=== PATIENT | male | born 1950 | race Caucasian/White ===

== ENCOUNTER 2016-11-02 01:05 | Emergency (ER) | payer MEDICAID, OTHER, SELFPAY ==
[~2016-11-02] VITALS: Ht 182.9 cm; Wt 68.0 kg
[2016-11-02 02:29] LABS: DAU SCREEN DISCLAIMER
[2016-11-02] MEDS ORDERED: SODIUM CHLORIDE 0.9% 1,000ML IVBOLUS ONE (02:30)
[2016-11-02 02:37] LABS: ASPARTATE AMINO TRANSFERASE 232 U/L (15-37); BLOOD UREA NITROGEN 6 mg/dL (7-18)
[2016-11-02] MEDS ORDERED: PHENYTOIN SODIUM 1,000 MG in SODIUM CHLORIDE 0.9% 80 ML IV ONE (03:00)
[2016-11-02] MEDS ORDERED: FILTER 0.22 MICRON IV ONE (03:00)
[2016-11-02] MEDS ORDERED: ONDANSETRON 2MG/ML, 2ML ONE (04:11)
[2016-11-02] MEDS ORDERED: PHEN100C PO (04:17)
[2016-11-02] MEDS ORDERED: ONDANSETRON 2MG/ML, 2ML IVPush ONE (04:30)
[2016-11-02 05:06] VITALS: BP 107/73
== END 2016-11-02 05:08 | disposition home or self-care (01) ==
LOC: ED 03:26
DX: R56.9 Unspecified convulsions (principal); R55 Syncope and collapse; F10.20 Alcohol dependence, uncomplicated; Z72.89 Other problems related to lifestyle
CPT/HCPCS: 36415; 70450; 80053; 80185; 80307; 85025; 93005; 96365; 96375; 99285; J1165; J2405; J7030

== ENCOUNTER 2016-11-11 12:20 | Emergency (ER) | payer SELFPAY ==
[~2016-11-11] VITALS: Ht 172.7 cm; Wt 80.0 kg
[~2016-11-11 12:20] MED LIST: PHEN100C PO
[2016-11-11] MEDS ORDERED: SODIUM CHLORIDE 0.9% 1,000ML IVBOLUS ONE (13:00)
[2016-11-11 13:40] LABS: ASPARTATE AMINO TRANSFERASE 183 U/L (15-37); BLOOD UREA NITROGEN 8 mg/dL (7-18)
[2016-11-11 13:45] LABS: ACETAMINOPHEN < 2 mcg/mL (10-30)
[2016-11-11] MEDS ORDERED: THIAMINE 100 MG/ML, 2ML IM ONE (15:00)
[2016-11-11] MEDS ORDERED: SODIUM CHLORIDE 0.9% IV ONE (15:00)
[2016-11-11] MEDS ORDERED: MAGNESIUM SULFATE IV ONE (15:00)
[2016-11-11] MEDS ORDERED: THIAMINE IV ONE (15:00)
[2016-11-11] MEDS ORDERED: FOLIC ACID 5 MG/ML IM ONE (15:00)
[2016-11-11] MEDS ORDERED: MAGNESIUM SULFATE 1 GM/2 ML IVPush ONE (15:00)
[2016-11-11] MEDS ORDERED: FOLIC ACID IV ONE (15:00)
[2016-11-11 15:27] VITALS: BP 112/84
[2016-11-11] MEDS ORDERED: IBUPROFEN 200 MG TABLET ONE (17:05)
[2016-11-11] MEDS ORDERED: IBUPROFEN 200 MG TABLET PO ONE (17:30)
== END 2016-11-11 18:17 | disposition left against medical advice (07) ==
LOC: ED 18:11
DX: G31.2 Degeneration of nervous system due to alcohol (principal); E86.1 Hypovolemia; F10.220 Alcohol dependence with intoxication, uncomplicated
CPT/HCPCS: 36415; 80053; 80307; 80329; 85025; 96365; 99284; J3411; J3475; J7030; G0480

== ENCOUNTER 2016-12-08 10:47 | Emergency (ER) | payer MEDICARE, OTHER ==
[~2016-12-08] VITALS: Ht 182.9 cm; Wt 69.0 kg
[2016-12-08] MEDS ORDERED: OXYcodone/APAP 10/325MG TABLET ONE (11:57)
[2016-12-08] MEDS ORDERED: OXYcodone/APAP 10/325MG TABLET PO ONE (12:00)
[2016-12-08] MEDS ORDERED: CLINDAMYCIN 150 MG CAPSULE PO ONE (14:00)
[2016-12-08 14:23] VITALS: BP 119/70
== END 2016-12-08 14:25 | disposition home or self-care (01) ==
LOC: ED 12:37
DX: B37.42 Candidal balanitis (principal)
CPT/HCPCS: 81003; 82962; 99283

== ENCOUNTER 2016-12-21 00:54 | Emergency (ER) | payer OTHER ==
[~2016-12-21] VITALS: Ht 182.9 cm; Wt 70.0 kg
[2016-12-21 00:55] VITALS: BP 107/73
[2016-12-21 01:53] LABS: HEMATOCRIT 39.9 % (39.2-51.8); WHITE BLOOD COUNT 5.8 x10^3/uL (3.4-10)
[2016-12-21 02:05] LABS: BLOOD UREA NITROGEN 13 mg/dL (7-18)
[2016-12-21] MEDS ORDERED: OXYcodone/APAP 5/325MG TABLET ONE (02:10)
[2016-12-21] MEDS ORDERED: OXYcodone/APAP 5/325MG TABLET PO ONE (02:30)
== END 2016-12-21 02:29 | disposition home or self-care (01) ==
LOC: ED 01:26
DX: L03.116 Cellulitis of left lower limb (principal)
CPT/HCPCS: 36415; 80048; 82040; 85025; 99285

== ENCOUNTER 2018-05-01 12:44 | Emergency (ER) | payer MEDICARE, MEDICAID ==
[~2018-05-01] VITALS: Ht 172.7 cm; Wt 70.0 kg
--- NOTE | 2018-05-01 13:14 | NUR ---
pt bib remsa. found sleeping on the stairs of an apartment. pt was easily aroused but would not stay awake. when asked if he drank any alcohol pt stated, "way more than i should"
--- NOTE | 2018-05-01 13:35 | NUR ---
TASK RN: PT SLEEPING ON VISHAL. NADN. CARDENAS.
[2018-05-01 17:29] VITALS: BP 97/67
--- NOTE | 2018-05-01 18:57 | NUR ---
PT ID FOUND IN ROOM. PLACED IN BAG AND GIVEN TO SECURITY.
== END 2018-05-01 18:48 | disposition home or self-care (01) ==
LOC: ED 17:48
DX: G31.2 Degeneration of nervous system due to alcohol (principal)
CPT/HCPCS: 99283

== ENCOUNTER 2020-04-01 22:37 | Emergency (ER) | payer MEDICARE ==
[~2020-04-01] VITALS: Ht 172.7 cm; Wt 71.0 kg
--- NOTE | 2020-04-02 00:54 | NUR ---
PT CONT TO REFUSE TO SPEAK TO RN. SLEEPING ON HIS SIDE. NO ACUTE DISTRESS NOTED.
--- NOTE | 2020-04-02 02:15 | NUR ---
PT SLEEPING ON GURNEY, NO ACUTE DISTRESS NOTED. WILL CONT TO MONITOR.
--- NOTE | 2020-04-02 04:37 | NUR ---
RN AND ROLL FORM OPERATOR ATTEMPED TO AMBULATE PT, PT NOT STEADY ON HIS FEET. VSS.
--- NOTE | 2020-04-02 04:44 | NUR ---
REPORT FROM VALERIA FLORENTINO. PT SLEEPING. EVEN RISE AND FALL OF CHEST OBSERVED. CALL LIGHT IN REACH
--- NOTE | 2020-04-02 05:55 | NUR ---
ATTEMPTED TO AMBULATE PT. PT UNABLE TO STAND WITHOUT ASSISTANCE. PT ASSITED BACK TO BED. WILL REASSESS WHEN PT MORE SOBER.
[2020-04-02 06:20] VITALS: BP 114/72
--- NOTE | 2020-04-02 06:59 | NUR ---
REPORT TO ALYSSIA FLORENTINO
--- NOTE | 2020-04-02 07:39 | NUR ---
LATE ENTRY 0700, SBAR RPT REC'D AND ASSUMED PT CARE. PT ARROUSES EASILY TO VERBAL STIM. BEDOLLA, DENIES PAIN. MEAL TRAY ORDERED. CALL LIGHT W/I REACH, NAD NOTED.
--- NOTE | 2020-04-02 08:43 | NUR ---
BREAKFAST TRAY PROVIDED AND PT CONSUMED 75%. PT OOB AMBULATORY WITH STEADY GAIT. Patient/Caregiver given discharge instructions and they have confirmed that they understand the instructions. Patient ambulatory with steady gait.
== END 2020-04-02 08:43 | disposition home or self-care (01) ==
LOC: ED 04-02 00:05
DX: F10.129 Alcohol abuse with intoxication, unspecified (principal); R41.82 Altered mental status, unspecified; Z72.9 Problem related to lifestyle, unspecified; I25.10 Atherosclerotic heart disease of native coronary artery without angina pectoris; I25.2 Old myocardial infarction; Y90.0 Blood alcohol level of less than 20 mg/100 ml
CPT/HCPCS: 70450; 99284

== ENCOUNTER 2020-04-12 05:28 | Emergency (ER) | payer MEDICARE ==
[~2020-04-12] VITALS: Ht 182.9 cm; Wt 74.0 kg
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
[2020-04-12] MEDS ORDERED: SODIUM CHLORIDE 0.9% 1,000ML IVBOLUS ONE (06:00)
[2020-04-12 06:02] LABS: BASOPHILS % (AUTO) 1 % (0-1); EOSINOPHILS % (AUTO) 3 % (1-7); LYMPHOCYTES % (AUTO) 33 % (22-44); MEAN CORPUSCULAR HEMOGLOBIN 33.8 pg (27.5-34.5); MEAN CORPUSCULAR HGB CONC 33.9 g/dL (33.2-36.2); MEAN PLATELET VOLUME 7.7 fL (7.4-10.4); MONOCYTES % (AUTO) 11 % (2-9); NEUTROPHILS % (AUTO) 51 % (42-75); PLATELET COUNT 214 x10^3/uL (130-400); RED BLOOD COUNT 3.47 x10^6/uL (4.38-5.82); RED CELL DISTRIBUTION WIDTH 16.2 % (9.4-14.8)
[2020-04-12 06:10] LABS: MD NO
[2020-04-12 06:12] LABS: ALANINE AMINOTRANSFERASE 67 U/L (12-78); ALBUMIN 3.4 g/dL (3.4-5.0); ANION GAP 8 mmol/L (5-15); CALCIUM 8.6 mg/dL (8.5-10.1); CHLORIDE 107 mmol/L (98-107); CREATININE 0.69 mg/dL (0.7-1.3)
--- NOTE | 2020-04-12 06:16 | NUR ---
PT SUPINE ON GURNEY RESTING CALMLY WITH EYES CLOSED, NAD, VSS. PIV PLACED PER MD ORDER, IVF INFUSING PER EMAR. SEIZURE PRECAUTIONS IN PLACE. PT DENIES ANY ADDITIONAL NEEDS AT THIS TIME. CALL LIGHT AND PERSONAL BELONGINGS WITHIN REACH.
--- NOTE | 2020-04-12 06:20 | NUR ---
PT TO CT
[2020-04-12 06:34] LABS: ALKALINE PHOSPHATASE 53 U/L (45-117); BILIRUBIN,TOTAL 0.6 mg/dL (0.2-1.0); CREATINE KINASE, TOTAL 721 U/L (39-308); TOTAL PROTEIN 6.6 g/dL (6.4-8.2)
[2020-04-12 06:35] LABS: AMPHETAMINE SCREEN, URINE Positive (Negative); BARBITURATE SCREEN, URINE Negative (Negative); BENZODIAZEPINE SCREEN, URINE Positive (Negative); CANNABINOID SCREEN, URINE Positive (Negative); COCAINE SCREEN, URINE Negative (Negative); METHADONE SCREEN, URINE Negative (Negative); OPIATE SCREEN, URINE Negative (Negative)
--- NOTE | 2020-04-12 06:47 | NUR ---
REPORT TO SINTIA FLORENTINO
[2020-04-12] MEDS ORDERED: MULTIVITAMIN 1 TABLET PO ONE (06:51)
[2020-04-12] MEDS ORDERED: POTASSIUM CHLORIDE 20 MEQ, MAGNESIUM SULFATE 1 GM, FOLIC ACID 1 MG, THIAMINE 200 MG in ... IV SCH (07:00)
--- NOTE | 2020-04-12 08:00 | NUR ---
PT RSTING, NO S/S SEIZURE ACTIVITY. VSS
--- NOTE | 2020-04-12 09:30 | NUR ---
GAVE PT MEAL TRAY, VSS
--- NOTE | 2020-04-12 10:34 | NUR ---
Patient/Caregiver given discharge instructions and they have confirmed that they understand the instructions. Patient ambulatory with steady gait.
[2020-04-12 10:35] VITALS: BP 105/63
== END 2020-04-12 10:37 ==
LOC: ED 06:11
DX: F10.220 Alcohol dependence with intoxication, uncomplicated (principal); R11.2 Nausea with vomiting, unspecified; R53.1 Weakness; M79.10 Myalgia, unspecified site; I25.2 Old myocardial infarction; I25.10 Atherosclerotic heart disease of native coronary artery without angina pectoris; R56.9 Unspecified convulsions; R53.83 Other fatigue; R41.0 Disorientation, unspecified; F17.200 Nicotine dependence, unspecified, uncomplicated; Y90.0 Blood alcohol level of less than 20 mg/100 ml
CPT/HCPCS: 36415; 70450; 71045; 80053; 80185; 80307; 80320; 82550; 85025; 93005; 96361; 96365; 96366; 99285; J3411; J3475; J3480; J7030; J7042; G0480

== ENCOUNTER 2020-04-15 21:47 | Emergency (ER) | payer MEDICARE ==
[~2020-04-15] VITALS: Ht 172.7 cm; Wt 80.0 kg
[2020-04-15 21:57] VITALS: BP 142/67
[2020-04-15] MEDS ORDERED: ACETAMINOPHEN 325 MG TABLET ONE (22:12)
--- NOTE | 2020-04-15 22:18 | NUR ---
PT MEDICATED PER MAR
[2020-04-15] MEDS ORDERED: ACETAMINOPHEN 325 MG TABLET PO ONE (22:30)
--- NOTE | 2020-04-15 22:36 | NUR ---
LAB AT BEDSIDE AT THIS TIME
[2020-04-15 22:57] LABS: BASOPHILS % (AUTO) 3 % (0-1); EOSINOPHILS % (AUTO) 1 % (1-7); LYMPHOCYTES % (AUTO) 34 % (22-44); MEAN CORPUSCULAR HGB CONC 33.2 g/dL (33.2-36.2); MEAN PLATELET VOLUME 7.5 fL (7.4-10.4); MONOCYTES % (AUTO) 10 % (2-9); NEUTROPHILS % (AUTO) 52 % (42-75); PLATELET COUNT 185 x10^3/uL (130-400); RED BLOOD COUNT 3.69 x10^6/uL (4.38-5.82); RED CELL DISTRIBUTION WIDTH 17.2 % (9.4-14.8)
[2020-04-15 23:10] LABS: ALBUMIN 3.5 g/dL (3.4-5.0); ANION GAP 5 mmol/L (5-15); CALCIUM 8.4 mg/dL (8.5-10.1); CHLORIDE 109 mmol/L (98-107); CREATININE 0.64 mg/dL (0.7-1.3)
[2020-04-15 23:15] LABS: TROPONIN I 0.193 ng/mL (0.000-0.045)
[2020-04-15 23:33] LABS: MD SCAN
--- NOTE | 2020-04-15 23:40 | NUR ---
Patient/Caregiver given discharge instructions and they have confirmed that they understand the instructions. Patient ambulatory with steady gait.
== END 2020-04-15 23:41 | disposition home or self-care (01) ==
LOC: ED 22:03
DX: K85.20 Alcohol induced acute pancreatitis without necrosis or infection (principal); R07.89 Other chest pain; F10.229 Alcohol dependence with intoxication, unspecified; I25.10 Atherosclerotic heart disease of native coronary artery without angina pectoris; I25.2 Old myocardial infarction; Y90.0 Blood alcohol level of less than 20 mg/100 ml
CPT/HCPCS: 36415; 71045; 80048; 82040; 84484; 85025; 93005; 99285

== ENCOUNTER 2020-04-17 01:38 | Emergency (ER) | payer SELFPAY ==
[~2020-04-17] VITALS: Ht 180.3 cm; Wt 80.0 kg
--- NOTE | 2020-04-17 01:54 | NUR ---
PT PRESENTS TO THE ER UNKEPT, WITH DIRTY CLOTHES AND SKIN. PT STATES HE HAS A HX OF SEIZURE BUT WHEN ASKED STATES "I BELIEVE THEY ARE RELATED TO ALCOHOL WITHDRAWL, YES." FSBG 270 PER EMS. PT CONNECTED TO ALL MONITORS, VSS. URINAL IN REACH. SEIZURE PADS IN PLACE, BEDRAILS UP X2, CALL LIGHT IN REACH.
--- NOTE | 2020-04-17 02:40 | NUR ---
TASK RN: IV INSERT, TOLERATED WELL. PATIENT FLUIDS HUNG. PATIENT DENIES ANY ADDITIONAL NEEDS AT THIS TIME.
--- NOTE | 2020-04-17 02:50 | NUR ---
PT AWAKE, WATCHING TV, ASKING FOR WATER.
[2020-04-17] MEDS ORDERED: SODIUM CHLORIDE FLUSH 10ML SYR IVF ONE (03:00)
[2020-04-17] MEDS ORDERED: SODIUM CHLORIDE 0.9% 1,000ML IVBOLUS ONE (03:00)
--- NOTE | 2020-04-17 03:37 | NUR ---
Pt roadtested, ambulatory with steady gait.
[2020-04-17 03:38] VITALS: BP 99/59
== END 2020-04-17 03:54 | disposition home or self-care (01) ==
LOC: ED 01:55
DX: F10.220 Alcohol dependence with intoxication, uncomplicated (principal); R94.31 Abnormal electrocardiogram [ECG] [EKG]; Z72.9 Problem related to lifestyle, unspecified; Y90.0 Blood alcohol level of less than 20 mg/100 ml
CPT/HCPCS: 93005; 96360; 99283; J7030

== ENCOUNTER 2020-04-19 00:01 | Emergency (ER) | payer SELFPAY ==
[~2020-04-19] VITALS: Ht 180.3 cm; Wt 75.0 kg
--- NOTE | 2020-04-19 00:26 | NUR ---
THIS RN INQUIRED WITH EMS WHERE THE PT'S WHEELCHAIR IS. PER EMS, PT DID NOT HAVE A WHEELCHAIR. HE WAS PICKED UP FROM A 11/04 FOR ETOH. PT DOES NOT COMPLAIN OF ANYTHING TO THIS RN. COMPLAINED OF PAIN TO ERP.
--- NOTE | 2020-04-19 01:36 | NUR ---
Pt awake with painful stimuli, able to answer questions.
--- NOTE | 2020-04-19 02:14 | NUR ---
Pt arousable to verbal stimuli. VSS, NADN.
[2020-04-19 03:45] VITALS: BP 106/58
== END 2020-04-19 03:47 | disposition home or self-care (01) ==
LOC: ED 00:35
DX: F10.220 Alcohol dependence with intoxication, uncomplicated (principal); I25.10 Atherosclerotic heart disease of native coronary artery without angina pectoris; I25.2 Old myocardial infarction; Y90.9 Presence of alcohol in blood, level not specified
CPT/HCPCS: 93005; 99283

== ENCOUNTER 2020-04-19 23:33 | Emergency (ER) | payer SELFPAY ==
[~2020-04-19] VITALS: Ht 182.9 cm; Wt 72.0 kg
--- NOTE | 2020-04-20 00:07 | NUR ---
Patient comes in with complaints of left chest pain that started "earlier today" patient unsure of the time but states that it hurts "really bad right now" Patient noted to be covered in urine and wood chips and old EKG stickers. Patient states he has been here every day and they can't find anything. Patient placed on information technology assistant. Call light within reach and bed in low position.
[2020-04-20 00:24] LABS: BASOPHILS % (AUTO) 4 % (0-1); EOSINOPHILS % (AUTO) 1 % (1-7); LYMPHOCYTES % (AUTO) 32 % (22-44); MD NO; MEAN CORPUSCULAR HEMOGLOBIN 33.1 pg (27.5-34.5); MEAN CORPUSCULAR HGB CONC 33.7 g/dL (33.2-36.2); MEAN PLATELET VOLUME 7.4 fL (7.4-10.4); MONOCYTES % (AUTO) 9 % (2-9); NEUTROPHILS % (AUTO) 54 % (42-75); PLATELET COUNT 136 x10^3/uL (130-400); RED CELL DISTRIBUTION WIDTH 16.8 % (9.4-14.8)
[2020-04-20 00:34] LABS: ALBUMIN 3.5 g/dL (3.4-5.0); ANION GAP 10 mmol/L (5-15); CALCIUM 8.1 mg/dL (8.5-10.1); CHLORIDE 107 mmol/L (98-107); CREATININE 0.91 mg/dL (0.7-1.3)
--- NOTE | 2020-04-20 01:02 | NUR ---
TASK RN: PROVIDER AWARE OF ELEVATED TROPONIN. ORDERS RECEIVED FOR REPEAT TROP AT 0300. NO ORDERS FOR ASA OR PAIN MEDS RECEIVED. BP/SPO2/ECG MONITORING IN PLACE. NO ST-SEGMENT ELEVATED NOTED ON MONITOR.
[2020-04-20 01:03] LABS: TROPONIN I 0.237 ng/mL (0.000-0.045)
[2020-04-20 04:56] LABS: TROPONIN I 0.224 ng/mL (0.000-0.045)
[2020-04-20 05:12] VITALS: BP 104/66
--- NOTE | 2020-04-21 01:40 | NUR ---
CHART ACCESSED FOR RECORDS REQUEST FROM [facility].
== END 2020-04-20 05:15 | disposition home or self-care (01) ==
LOC: ED 04-20 00:17
DX: R07.89 Other chest pain (principal); F10.129 Alcohol abuse with intoxication, unspecified; F15.129 Other stimulant abuse with intoxication, unspecified; I42.9 Cardiomyopathy, unspecified; R77.8 Other specified abnormalities of plasma proteins; R94.31 Abnormal electrocardiogram [ECG] [EKG]; I25.10 Atherosclerotic heart disease of native coronary artery without angina pectoris; I25.2 Old myocardial infarction; Z72.9 Problem related to lifestyle, unspecified; Y90.9 Presence of alcohol in blood, level not specified
CPT/HCPCS: 36415; 71045; 80048; 80320; 82040; 84484; 85025; 93005; 99285; G0480

== ENCOUNTER 2020-05-08 17:06 | Emergency (ER) | payer SELFPAY ==
[~2020-05-08] VITALS: Ht 195.6 cm; Wt 73.0 kg
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
--- NOTE | 2020-05-08 17:16 | NUR ---
TASK RN: PT TO XR
[2020-05-08] MEDS ORDERED: DIPH,PERTUSS(ACELL),TET VAC/PF 0.5 ML IM-VACC ONE ×2 (17:23→17:30)
[2020-05-08] MEDS ORDERED: LIDOCAINE-MPF 1%, 5ML ONE (17:23)
[2020-05-08] MEDS ORDERED: LIDOCAINE-MPF 1%, 5ML INFIL ONE (18:00)
--- NOTE | 2020-05-08 18:53 | NUR ---
THIS RN AT BEDSIDE, PT REFUSED TDAP, ANIOTHER RN ASKED PT WELL AND STILL REFUSING
[2020-05-08 20:30] VITALS: BP 100/55
[2020-05-08] MEDS ORDERED: ACETAMINOPHEN 325 MG TABLET ONE (20:37)
--- NOTE | 2020-05-08 20:46 | NUR ---
PT COMPLAINS OF PAIN, SPOKE WITH ERP. ORDER FOR 650 TYLENOL PO GIVEN. PT REFUSED AT THIS TIME. PT PEED ON THE FLOOR AND IS REFUSING TO KEEP SP02 ON
--- NOTE | 2020-05-08 21:53 | NUR ---
PT COMPLAINS OF PAIN, SPOKE WITH ERP, PT ALREADY REFUSED TYLEOL, AND ERP DOES NOT WANT TO GIVE ANYTHING BECAUSE OF ETOH. PT STEADY AMBULATING, ERP SPOKE WITH PATIENT AGIAN ABOUT DISCHARGE AND INSTRUCTIONS, PT REFUSING TO LEAVE. SECURITY CALLED TO ESCORT PATIENT OUT.
== END 2020-05-08 22:01 | disposition home or self-care (01) ==
LOC: ED 18:32
DX: S01.81XA Laceration without foreign body of other part of head, initial encounter (principal); S09.90XA Unspecified injury of head, initial encounter; F10.220 Alcohol dependence with intoxication, uncomplicated; I25.10 Atherosclerotic heart disease of native coronary artery without angina pectoris; M25.511 Pain in right shoulder; W18.30XA Fall on same level, unspecified, initial encounter; Y93.89 Activity, other specified; Y92.59 Other trade areas as the place of occurrence of the external cause; Y99.8 Other external cause status; Y90.0 Blood alcohol level of less than 20 mg/100 ml
CPT/HCPCS: 12052; 70450; 99284

== ENCOUNTER 2020-06-19 05:18 | Emergency (ER) | payer SELFPAY ==
[~2020-06-19] VITALS: Ht 170.2 cm; Wt 74.0 kg
[2020-06-19 06:03] LABS: BASOPHILS % (AUTO) 1 % (0-1); EOSINOPHILS % (AUTO) 4 % (1-7); LYMPHOCYTES % (AUTO) 33 % (22-44); MEAN CORPUSCULAR HEMOGLOBIN 32.4 pg (27.5-34.5); MEAN CORPUSCULAR HGB CONC 33.6 g/dL (33.2-36.2); MEAN PLATELET VOLUME 7.5 fL (7.4-10.4); MONOCYTES % (AUTO) 8 % (2-9); NEUTROPHILS % (AUTO) 55 % (42-75); PLATELET COUNT 490 x10^3/uL (130-400); RED BLOOD COUNT 3.91 x10^6/uL (4.38-5.82)
[2020-06-19 06:06] LABS: ALANINE AMINOTRANSFERASE 31 U/L (12-78); ALBUMIN 3.9 g/dL (3.4-5.0); ANION GAP 11 mmol/L (5-15); CALCIUM 8.6 mg/dL (8.5-10.1); CHLORIDE 110 mmol/L (98-107); CREATININE 0.84 mg/dL (0.7-1.3)
[2020-06-19 06:10] LABS: ALKALINE PHOSPHATASE 141 U/L (45-117); BILIRUBIN,TOTAL 0.3 mg/dL (0.2-1.0); TOTAL PROTEIN 7.8 g/dL (6.4-8.2)
[2020-06-19 06:18] LABS: MD NO
--- NOTE | 2020-06-19 07:00 | NUR ---
PT ON HIS SIDE WITH EYES CLOSED. EVEN RISE AND FALL OF CHEST NOTED. VSS. ALL NEEDS MET AT THIS TIME. SIDE RAILS UP. CALL LIGHT WITHIN REACH.
--- NOTE | 2020-06-19 13:50 | NUR ---
Note ovidio in EDM - 06/19/20 at 1352 by NARGIS BREAK RN: JAY COOLEYN AT BEDSIDE CONVERSING WITH PT. . SITTER OUTSIDE ROOM WITH PT IN VIEW. NAD NOTED.
--- NOTE | 2020-06-19 13:56 | NUR ---
BREAK RN: PT SLEEPING, ARROUSED TO VERBAL STIMULI. PT REPOSITIONED SELF ON GURNEY AND HOB UP 45 DEGREES. MEAL TRAY SET UP FOR PT AND PT NOW EATING W/O DIFFICULTY. VSS NOTED
[2020-06-19 13:59] VITALS: BP 129/85
--- NOTE | 2020-06-19 14:20 | NUR ---
BREATHLYZER 0.257
--- NOTE | 2020-06-19 14:29 | NUR ---
PT AMBULATED TO MN AREA, STEADY GAIT. PT DID NOT WANT TO WAIT FOR PAPERWORK OR DOCTOR. PT ADVISED TO COME BACK TO ER IF HE FELT WORSE.
== END 2020-06-19 14:31 | disposition home or self-care (01) ==
LOC: ED 05:30
DX: F10.220 Alcohol dependence with intoxication, uncomplicated (principal); Y90.0 Blood alcohol level of less than 20 mg/100 ml
CPT/HCPCS: 36415; 80053; 80320; 85025; 99283; G0480

== ENCOUNTER 2020-06-20 01:50 | Emergency (ER) | payer SELFPAY ==
[~2020-06-20] VITALS: Ht 167.6 cm; Wt 65.0 kg
--- NOTE | 2020-06-20 02:25 | NUR ---
PLEASE SEE DOWNTIME DOCUMENTATION PAPER CHARTING FOR NOTES, VITALS AND ORIGINAL TRIAGE
--- NOTE | 2020-06-20 03:24 | NUR ---
jair resting in bed in NAD. call mccall in reach. safety maintained. resting in bed with L eye open and right eye closed. VS remain stable on RA
--- NOTE | 2020-06-20 05:30 | NUR ---
PATIENT RESTING IN BED IN NAD. CALL FLEMING IN REACH. URINAL IN REACH. SAFETY MAINTAINED. PATIENT FOLLOWS COMMANDS WITH MULTUPLE CUES/REQUESTS. NOT RESPONDING VOCALLY OR OPENING EYES. WILL CONTINUE TO MONITOR.
--- NOTE | 2020-06-20 06:31 | NUR ---
PATIENT RESTING IN BED IN NAD. BECOMING MORE RESPONSIVE TO VOICE BUT NOT CONSISTENTLY. WILL CONTINUE TO MONITOR. SAFETY MAINTAINED.
--- NOTE | 2020-06-20 07:06 | NUR ---
REPORT GIVEN TO YARI FLORENTINO
[2020-06-20 07:29] VITALS: BP 110/67
--- NOTE | 2020-06-20 08:07 | NUR ---
Pt found to be out of room with all belongings out of room as well. Bathrooms in dept checked without finding pt there. Assumed pt left dept and was up for discharge anyway. commercial shrimping captain aware. Last set of VS were stable and pt had finished the cup of water brought in to him approximately 30 minutes prior. Urinal emptied of 225mL of clear dark yellow uop.
== END 2020-06-20 08:15 | disposition home or self-care (01) ==
LOC: ED 01:51
DX: F10.220 Alcohol dependence with intoxication, uncomplicated (principal); Z72.9 Problem related to lifestyle, unspecified; I25.10 Atherosclerotic heart disease of native coronary artery without angina pectoris; I25.2 Old myocardial infarction; G40.909 Epilepsy, unspecified, not intractable, without status epilepticus; Y90.0 Blood alcohol level of less than 20 mg/100 ml
CPT/HCPCS: 99285

== ENCOUNTER 2020-06-23 23:23 | Emergency (ER) | payer SELFPAY ==
[~2020-06-23] VITALS: Ht 180.3 cm; Wt 68.0 kg
[2020-06-23 23:28] VITALS: BP 128/86
--- NOTE | 2020-06-24 00:07 | NUR ---
PT BACK FROM IMAGING
--- NOTE | 2020-06-24 00:58 | NUR ---
PT RESTING ON GURNEY NADN, NO NEEDS, DEEP SNORING RESPIRTAIONS HEARD OFTEN,
--- NOTE | 2020-06-24 01:42 | NUR ---
PT STILL RESTING ON GURNEY AWAKENS TO LOUD VERBAL STIMULI
--- NOTE | 2020-06-24 03:04 | NUR ---
PT STILL RESTING DEEPLY ON VISHAL CANTRELL, NO NEEDS, VSS
== END 2020-06-24 06:16 | disposition home or self-care (01) ==
LOC: ED 23:40
DX: S09.90XA Unspecified injury of head, initial encounter (principal); F10.120 Alcohol abuse with intoxication, uncomplicated; M54.2 Cervicalgia; I25.10 Atherosclerotic heart disease of native coronary artery without angina pectoris; I25.2 Old myocardial infarction; G40.909 Epilepsy, unspecified, not intractable, without status epilepticus; Y93.89 Activity, other specified; W01.0XXA Fall on same level from slipping, tripping and stumbling without subsequent striking against object, initial encounter; Y92.89 Other specified places as the place of occurrence of the external cause; Y99.8 Other external cause status; Y90.0 Blood alcohol level of less than 20 mg/100 ml
CPT/HCPCS: 70450; 72125; 99285

== ENCOUNTER 2020-06-24 06:42 | Emergency (ER) | payer SELFPAY ==
[~2020-06-24] VITALS: Ht 180.3 cm; Wt 70.0 kg
[2020-06-24 06:47] VITALS: BP 140/92
--- NOTE | 2020-06-24 06:50 | NUR ---
REPORT TO FREDERIC FLORENTINO TRANSFER OF CARE AT THIS TIME
--- NOTE | 2020-06-24 07:58 | NUR ---
THIS RN AND DIRECTOR RECREATION CENTER GOT PATIENT UP FROM [facility] WITHOUT DIFFICULTY, PATIENT ABLE TO WALK WITH STEADY GAIT, PATIENT AMBULATED TO DOORWAY AND THEN TURNED AROUND SAYING "I CAN'T WALK" AMBULATED BACK TO [facility] AND JUMPED IN, SAYING "I CAN'T WALK, I CAN'T WALK." SECURITY CALLED.
--- NOTE | 2020-06-24 07:59 | NUR ---
SECURITY ESCORTED PATIENT FROM ED, PATIENT AMBULATORY WITH STEADY GAIT, DISCHARGE PAPERWORK GIVEN AND BUS PASS PROVIDED TO PATIENT.
== END 2020-06-24 07:59 | disposition home or self-care (01) ==
LOC: ED 07:07
DX: F10.220 Alcohol dependence with intoxication, uncomplicated (principal); I25.10 Atherosclerotic heart disease of native coronary artery without angina pectoris; I25.2 Old myocardial infarction; Y90.9 Presence of alcohol in blood, level not specified
CPT/HCPCS: 99283

== ENCOUNTER 2020-06-26 09:09 | Emergency (ER) | payer SELFPAY ==
[~2020-06-26] VITALS: Ht 182.9 cm; Wt 73.0 kg
--- NOTE | 2020-06-26 09:20 | NUR ---
Pt to imaging.
--- NOTE | 2020-06-26 09:51 | NUR ---
VIKTORIA Croft and VIKTORIA Harp at bedside for splint.
[2020-06-26] MEDS ORDERED: NEOSPORIN OINT. PKT 1 PACKET ONE (09:54)
[2020-06-26] MEDS ORDERED: ACETAMINOPHEN 500 MG TABLET ONE (09:54)
[2020-06-26] MEDS ORDERED: ACETAMINOPHEN 500 MG TABLET PO ONE (10:00)
[2020-06-26 11:06] VITALS: BP 117/70
== END 2020-06-26 11:27 | disposition home or self-care (01) ==
LOC: ED 09:24
DX: S42.001D Fracture of unspecified part of right clavicle, subsequent encounter for fracture with routine healing (principal); I25.10 Atherosclerotic heart disease of native coronary artery without angina pectoris; I25.2 Old myocardial infarction; G40.909 Epilepsy, unspecified, not intractable, without status epilepticus; X58.XXXD Exposure to other specified factors, subsequent encounter
CPT/HCPCS: 29105; 99283

== ENCOUNTER 2020-06-26 14:35 | Emergency (ER) | payer SELFPAY ==
[~2020-06-26] VITALS: Ht 180.3 cm; Wt 80.0 kg
--- NOTE | 2020-06-26 14:38 | NUR ---
patient arrives with remsa found passed out on wall with two pints vodka next to him, patient left our facility hours ago.
--- NOTE | 2020-06-26 14:49 | NUR ---
BREAK RN: PT LYING ON GURNEY. RR EVEN AND UNLABORED. CALL LIGHT AND PERSONAL BELONGINGS WITHIN REACH. PT AWAKES WITH NAME.
--- NOTE | 2020-06-26 16:00 | NUR ---
PT URINATED ON FLOOR AND GURNEY. EDUCATED PT ON USE OF URINAL. PT VERBLAIZES UNDERSTANDING.
--- NOTE | 2020-06-26 18:30 | NUR ---
Patient is resting comfortably in bed. Vital Signs within normal limits.
--- NOTE | 2020-06-26 19:30 | NUR ---
ATTEMPTED TO AMBULATE PT. PT IS STILL VERY UNSTEADY. PT BTB. MONITOR IN PLACE.
--- NOTE | 2020-06-26 20:30 | NUR ---
Patient is resting comfortably in bed. Vital Signs within normal limits.
--- NOTE | 2020-06-26 20:53 | NUR ---
REPORT RECIEVED FROM CHADD KOHLER. PT RESTING IN [facility], RESP EVEN/UNLABORED
[2020-06-26 21:17] VITALS: BP 95/67
--- NOTE | 2020-06-26 21:30 | NUR ---
PT STEADY AMBULATING TO D/C DESK. PT PROVIDED NEW PANTS, UNDERWEAR, SOCKS, AND GIVEN BUS PASS. PT UNDERSTANDING OF D/C INSTRUCTIONS.
== END 2020-06-26 21:36 | disposition home or self-care (01) ==
LOC: ED 15:05
DX: F10.220 Alcohol dependence with intoxication, uncomplicated (principal); I25.2 Old myocardial infarction; I25.10 Atherosclerotic heart disease of native coronary artery without angina pectoris; G40.909 Epilepsy, unspecified, not intractable, without status epilepticus; Y90.0 Blood alcohol level of less than 20 mg/100 ml
CPT/HCPCS: 99285

== ENCOUNTER 2020-06-27 02:51 | Emergency (ER) | payer SELFPAY ==
[~2020-06-27] VITALS: Ht 182.9 cm; Wt 74.0 kg
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
--- NOTE | 2020-06-27 04:11 | NUR ---
patient resting in bed in NAD on L lateral side with eyes closed. VS remain stable. call mccall in reach.
--- NOTE | 2020-06-27 05:27 | NUR ---
PATIENT EASILY AROUSED. VS REMAIN STABLE ON RA. DISCHARGE INSTRUCTIONS REVIEWED WITH PATIENT AND LARGE POOL OF URINE NOTED NEXT TO VISHAL ON FLOOR. RN ADDRESSED THIS INAPPROPRIATE BEHAVIOR WITH PATIENT WHO STATES "I MUST DO THAT WITHOUT THINKING ABOUT IT". PATIENT HAS A HISTORY OF DOING THIS DURING MOST ER VISITS. STEADY GAIT TO LOBBY. ALL PERSONAL BELONGINGS WITH PATIENT ON DC. NO IV PLACED DURING THIS ER VISIT.
[2020-06-27 05:28] VITALS: BP 99/78
== END 2020-06-27 05:31 | disposition home or self-care (01) ==
LOC: ED 03:11
DX: G89.11 Acute pain due to trauma (principal); M25.511 Pain in right shoulder; F10.120 Alcohol abuse with intoxication, uncomplicated; W01.0XXA Fall on same level from slipping, tripping and stumbling without subsequent striking against object, initial encounter; Y93.89 Activity, other specified; Y92.488 Other paved roadways as the place of occurrence of the external cause; Y99.8 Other external cause status; Y90.0 Blood alcohol level of less than 20 mg/100 ml
CPT/HCPCS: 99283

== ENCOUNTER 2020-07-16 22:28 | Emergency (ER) | payer SELFPAY ==
[~2020-07-16] VITALS: Ht 182.9 cm; Wt 70.0 kg
--- NOTE | 2020-07-16 22:56 | NUR ---
pt in bed with no signs or symptoms of acute distress noted respirations even and unlabored, pt with bed rails up bilaterally, call light within reach and lights low in room for comfort. lab in to draw.
[2020-07-16 22:58] LABS: BASOPHILS % (AUTO) 4 % (0-1); EOSINOPHILS % (AUTO) 14 % (1-7); LYMPHOCYTES % (AUTO) 30 % (22-44); MD NO; MEAN CORPUSCULAR HEMOGLOBIN 32.2 pg (27.5-34.5); MEAN CORPUSCULAR HGB CONC 33.3 g/dL (33.2-36.2); MEAN PLATELET VOLUME 7.5 fL (7.4-10.4); MONOCYTES % (AUTO) 8 % (2-9); NEUTROPHILS % (AUTO) 45 % (42-75); PLATELET COUNT 523 x10^3/uL (130-400); RED BLOOD COUNT 3.69 x10^6/uL (4.38-5.82)
[2020-07-16 23:06] LABS: ALANINE AMINOTRANSFERASE 47 U/L (12-78); ALBUMIN 3.6 g/dL (3.4-5.0); ANION GAP 8 mmol/L (5-15); CALCIUM 8.4 mg/dL (8.5-10.1); CHLORIDE 108 mmol/L (98-107); CREATININE 0.92 mg/dL (0.7-1.3)
[2020-07-16 23:12] LABS: ALKALINE PHOSPHATASE 118 U/L (45-117); BILIRUBIN,TOTAL 0.3 mg/dL (0.2-1.0); TOTAL PROTEIN 7.1 g/dL (6.4-8.2)
--- NOTE | 2020-07-16 23:25 | NUR ---
pt resting quietly in bed with eyes closed and even unlabored respirations no signs or symptoms of acute distress noted, when rn goes in room to remind pt to use urinal when he feels the urge to void, pt responds with a grunt. lights low in room for comfort, bed rails up bilaterally call light within reach.
--- NOTE | 2020-07-17 00:17 | NUR ---
pt continues to rest quietly in bed with eyes closed and even unlabored respirations no signs or symptoms of acute distress noted. bed in lowest position. bed rails up bilaterally. call light within reach, urinal at bedside
--- NOTE | 2020-07-17 00:48 | NUR ---
PT IN BED WITH NO SIGNS OR SYMPTOMS OF ACUTE DISTRESS NOTED RESPIRATIONS EVEN AND UNLABORED. REPORT GIVEN TO JOSE F FLORENTINO
--- NOTE | 2020-07-17 02:01 | NUR ---
Pt continues to rest with no changes or issues. VSS. Pt awakes to verbal and can follow simple commands.
[2020-07-17 03:03] VITALS: BP 110/60
--- NOTE | 2020-07-17 03:03 | NUR ---
Pt A&O, steady on feet, alble to ambulate down phillips without difficulty. Pt given snacks and juice. Patient/Caregiver given discharge instructions and they have confirmed that they understand the instructions. Patient ambulatory with steady gait.
== END 2020-07-17 03:05 | disposition home or self-care (01) ==
LOC: ED 07-17 02:30
DX: F10.220 Alcohol dependence with intoxication, uncomplicated (principal); G31.2 Degeneration of nervous system due to alcohol; R41.82 Altered mental status, unspecified; I25.2 Old myocardial infarction; Z72.9 Problem related to lifestyle, unspecified; Y90.0 Blood alcohol level of less than 20 mg/100 ml
CPT/HCPCS: 36415; 80053; 80320; 85025; 99283; G0480

== ENCOUNTER 2020-07-18 09:52 | Emergency (ER) | payer SELFPAY ==
[~2020-07-18] VITALS: Ht 188 cm; Wt 76.3 kg
--- NOTE | 2020-07-18 10:21 | NUR ---
BIB EMS FOR RIGHT HAND PAIN SECONDARY TO A FALL WHILE INTOXICATED THIS AM. PER EMS PT WAS ABLE TO AMBULATE WITH ASSISTANCE FOR THEM. PT ADMITS TO DRINKING EVERYDAY INCLUDING TODAY. PT DENIED ANY LOC, HEAD INJURY CP, N/V OR ANY OTHER COMPLAINTS. PT IS AXOX4 AND ABLE TO ANSER QUESTIONS. PT IN BED AND AROUSABLE TO VOICE.
[2020-07-18 13:13] VITALS: BP 100/72
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
== END 2020-07-18 13:30 | disposition home or self-care (01) ==
LOC: EDBD → MERGE 09:52 → ED 13:18
DX: S52.501A Unspecified fracture of the lower end of right radius, initial encounter for closed fracture (principal); F10.220 Alcohol dependence with intoxication, uncomplicated; M79.641 Pain in right hand; I25.10 Atherosclerotic heart disease of native coronary artery without angina pectoris; I25.2 Old myocardial infarction; X58.XXXA Exposure to other specified factors, initial encounter; Y93.89 Activity, other specified; Y92.89 Other specified places as the place of occurrence of the external cause; Y99.8 Other external cause status; Y90.0 Blood alcohol level of less than 20 mg/100 ml
CPT/HCPCS: 29125; 99283

== ENCOUNTER 2020-08-20 01:50 | Emergency (ER) | payer SELFPAY ==
[~2020-08-20] VITALS: Ht 185.4 cm; Wt 78.2 kg
--- NOTE | 2020-08-20 01:58 | NUR ---
assessment made. ERP at bedside.
[2020-08-20] MEDS ORDERED: KETOROLAC 30 MG/1 ML IM ONE (02:00)
[2020-08-20] MEDS ORDERED: KETOROLAC 30 MG/1 ML ONE (02:00)
--- NOTE | 2020-08-20 02:04 | NUR ---
patient medicated for pain.
--- NOTE | 2020-08-20 02:52 | NUR ---
patient states he is not ready to be discharge and asking if he can stay until morning. patient was told that he cannot stay.
--- NOTE | 2020-08-20 02:54 | NUR ---
will ask the assistance of security.
[2020-08-20 02:56] VITALS: BP 132/79
== END 2020-08-20 03:01 | disposition home or self-care (01) ==
LOC: ED 01:52
DX: S39.012A Strain of muscle, fascia and tendon of lower back, initial encounter (principal); I25.10 Atherosclerotic heart disease of native coronary artery without angina pectoris; I25.2 Old myocardial infarction; G40.909 Epilepsy, unspecified, not intractable, without status epilepticus; Z87.891 Personal history of nicotine dependence; X58.XXXA Exposure to other specified factors, initial encounter; Y93.89 Activity, other specified; Y92.89 Other specified places as the place of occurrence of the external cause; Y99.8 Other external cause status
CPT/HCPCS: 96372; 99283; J1885